=== PATIENT | female | born 1945 | race Hispanic/Latino ===

== ENCOUNTER → 2017-04-21 | Outpatient (CLI) | payer OTHER | END | disposition home or self-care (01) | LOC: OIH 10:29 | PROVIDERS: ATTEND Family Medicine | DX: M25.551 Pain in right hip (principal); M25.552 Pain in left hip | CPT/HCPCS: 73521 ==

== ENCOUNTER 2025-01-18 10:14 | Observation (INO) | payer OTHER ==
[~2025-01-18] VITALS: Ht 152.4 cm; Wt 54.6 kg
[2025-01-18] VITALS (7 sets, daily range): BP systolic 120–156; BP diastolic 50–75; PULSE 63–75; RESP 18–20; TEMP 98.7–98.9; O2SAT 98
--- NOTE | 2025-01-18 10:26 | EKG ---
[facility] Test Date: 2025-01-18 Test Time: 10:14:10 Pat Name: SHAY GARZON Department: [facility] Room: 228 Gender: F Rn Acls: 0723 : [id number] Requested By: EVE DAMON Order Number: [id number] Reading MD: Jessica Flaherty Measurements Intervals [place] Rate: 63 P: 0 CA: 75 QRS: 31 QRSD: 90 T: 53 QT: 439 QTc: 450 Interpretive Statements Sinus rhythm No previous ECG available for comparison Electronically Signed On 01-18-2025 21:13:58 MATE SHIP by Jessica Flaherty Please click the below link to view image of tracing.
--- NOTE | 2025-01-18 10:27 | ERN ---
ED Note History of Present Illness Stated Complaint: CP Chief Complaint: Chest Pain Time Seen by MD: 10:17 Dictation: PATIENT IS A 79-YEAR-OLD FEMALE COMING IN WITH HER DAUGHTER WITH COMPLAINTS OF SUBSTERNAL CHEST PAIN WITHOUT REFERRED PAIN ONSET 20 MINUTES PRIOR TO ARRIVAL. PATIENT WAS RIDING IN HER CAR GOING TO A DOCTOR'S OFFICE WHEN SHE STARTED HAVING THE CHEST PAIN. SHE DENIES SHORTNESS A BREATH NO JAW PAIN NO ARM PAIN NO BACK PAIN. NO NAUSEA VOMITING. SHE STATES SHE HAS A HISTORY OF DIABETES AND HYPERTENSION, CHOLESTEROL. NO MANAGER BUSINESS DEVELOPMENT HOSPICE'S NO HISTORY OF CAD STENTS OR HEART CATHETERIZATION. Allergies: Coded Allergies: No Known Drug Allergies (Unverified Allergy, Unknown, 01/18/25) Past Medical History Past Medical History: Diabetes-Type II, High Cholesterol, Hypertension Surgical History: None History: Not Applicable RN Note Reviewed/Agreed w/PFSH: Yes Review of System Dictation CONSTITUTIONAL: NEGATIVE EXCEPT FOR HPI HEAD/FACE: NEGATIVE EXCEPT FOR HPI EENT: NEGATIVE EXCEPT FOR HPI RESPIRATORY: NEGATIVE EXCEPT FOR HPI CHEST PAIN GASTROINTESTINAL/ABDOMINAL: NEGATIVE EXCEPT FOR HPI GENITOURINARY: NEGATIVE EXCEPT FOR HPI MUSCULOSKELETAL: NEGATIVE EXCEPT FOR HPI INTEGUMENTARY: NEGATIVE EXCEPT FOR HPI NEUROLOGICAL/PSYCH: NEGATIVE EXCEPT FOR HPI HEMATOLOGIC/LYMPHATIC: NEGATIVE EXCEPT FOR HPI ALL SYSTEMS NEGATIVE, EXCEPT NOTED ABOVE. 13 POINT REVIEW OF SYSTEMS ASSESSED AND ALL NEGATIVE EXCEPT FOR ABOVE. Initial Vital Sign VS Vital Signs Date Time Temp Pulse Resp B/P (MAP) Pulse Ox O2 Delivery O2 Flow Rate FiO2 01/18/25 10:17 98.1 63 18 163/58 98 Room Air 0 01/18/25 11:24 21 Physical Exam Dictation VITAL SIGNS REVIEWED GENERAL APPEARANCE: ALERT, ORIENTED X 3, MILD ACUTE DISTRESS, WELL DEVELOPED, NOURISHED. HEAD AND FACE: NON-TRAUMATIC. EYES: PERRL, PINK CONJUNCTIVAS, EYELID NO TRAUMA, ANTERIOR CHAMBER WITH ARCUS SENILIS. EARS: PINNAS INTACT AND NO SIGNS OF TRAUMA OR ERYTHEMA EAR CANALS CLEAR AND NO DISCHARGE TM NO ERYTHEMA NOSE: NO DISCHARGE, NO BLEEDING. OROPHARYNX: MOUTH NORMAL, TONGUE PINK, PHARYNX CLEAR,NO ERYTHEMA, TONSILS NO EXUDATES, NO ABSCESSES NOTED, MUCOUS MEMBRANE MOIST NECK: SUPPLE, NON-TENDER, NO THYROMEGALY, NO MASSES, NO JVD, NO BRUITS BREAST:DEFERRED CHEST:NO TENDERNESS, NO CREPITUS, NO PARADOXICAL MOVEMENT, NO RETRACTIONS LUNGS:CLEAR, WELL-VENTILATED, SYMMETRIC, NO RALES, NO WHEEZING, NO RHONCHI, NO STRIDOR, GOOD BREATH SOUNDS BILATERALLY HEART: REGULAR RATE, REGULAR RHYTHM, NO MURMUR, NO GALLOPS VASCULAR: NO PERIPHERAL EDEMA, ABDOMEN: SOFT, POSITIVE BOWEL SOUNDS, NONDISTENDED, NO GUARDING, NONTENDER, NO REBOUND, NO MASSES NO HEPATOMEGALY, NO SPLENOMEGALY, NO CLAUDIO'S SIGN, NO HERNIAS. RECTAL: DEFERRED GENITAL: DEFERRED NEUROLOGICAL: NORMAL SPEECH, MOTOR FUNCTION INTACT, SENSORY FUNCTION INTACT MUSCULOSKELETAL: NECK NONTENDER, FULL RANGE OF MOTION, BACK NONTENDER, FULL RANGE OF MOTION, EXTREMITIES: NONTENDER, FULL RANGE OF MOTION SKIN: COLOR PINK, DRY, NO TURGOR, NO RASH, NO LACERATIONS, NO ABRASIONS, NO CONTUSIONS. LYMPHATIC: DEFERRED Results (Laboratory/Radiology) Laboratory/Radiology Laboratory Tests Test 01/18/25 10:32 White Blood Count 3.6 K/uL (4.8-10.8) L Red Blood Count 3.04 MIL/uL (4.00-5.50) L Hemoglobin 9.1 g/dL (12.0-16.0) L Hematocrit 28.0 % (36-48) L Mean Corpuscular Volume 92.1 fL (79-99) Mean Corpuscular Hemoglobin 29.9 pg (27.0-33.0) Mean Corpuscular Hemoglobin Concent 32.5 g/dL (32.0-36.0) Red Cell Distribution Width 12.0 % (11.0-15.5) Platelet Count 163 K/uL (130-400) Mean Platelet Volume 8.9 fL (7.5-10.5) Immature Granulocyte % (Auto) 0.3 % (0-1) Neutrophils (%) (Auto) 54.1 % (40.0-77.0) Lymphocytes (%) (Auto) 29.2 % (21.0-51.0) Monocytes (%) (Auto) 13.9 % (3.0-13.0) H Eosinophils (%) (Auto) 2.2 % (0.0-8.0) Basophils (%) (Auto) 0.3 % (0.0-5.0) Neutrophils # (Auto) 1.9 K/uL (1.8-7.7) Lymphocytes # (Auto) 1.1 K/uL (1.0-4.8) Monocytes # (Auto) 0.5 K/uL (0.1-1.0) Eosinophils # (Auto) 0.08 K/uL (0.00-0.70) Basophils # (Auto) 0.01 K/uL (0.00-0.20) Absolute Immature Granulocyte (auto 0.01 K/uL (0-1) Nucleated Red Blood Cells 0.0 % (0.0-0.19) Sodium Level 139 mmol/L (136-145) Potassium Level 3.8 mmol/L (3.5-5.1) Chloride Level 103 mmol/L (101-111) Carbon Dioxide Level 27 mmol/L (21-32) Blood Urea Nitrogen 17 mg/dL (7-18) Creatinine 1.2 mg/dL (0.5-1.0) H Glomerular Filtration Rate Calc 45 mL/min (>90) Random Glucose 113 mg/dL (70-105) H Total Calcium 8.5 mg/dL (8.5-10.1) Magnesium Level 1.60 mg/dL (1.80-2.40) L Troponin I High Sensitivity 10 ng/L (4-50) 1125/CHEST X-RAY NEGATIVE Labs Reviewed?: Yes EKG Comment: 1014/EKG NORMAL SINUS RHYTHM/HEART RATE 63/AXIS NORMAL/NO ECTOPY ED Course ED Course Orders Procedure Category Date Status Time Cbc With Differential LAB 01/18/25 Complete 10:24 Chest 1vw RAD 01/18/25 Taken 10:24 12 Lead Ekg Tracing- EKG 01/18/25 Complete Technical 10:24 Nitroglycerin 0.4mg PHA 01/18/25 In Process Sl Tab (Nitrostat) 10:30 Magnesium LAB 01/18/25 Complete 10:24 Troponin I High LAB 01/18/25 Complete Sensitivity 10:24 Aspirin 325mg Tab PHA 01/18/25 Complete (Aspirin 325mg Tab) 10:30 Basic Metabolic Panel LAB 01/18/25 Complete 10:24 Magnesium 2gm Premix PHA 01/18/25 In Process 50ml (Magnesium 2gm 11:00 Edm Admit Bridge Order ADM 01/18/25 Verified 11:42 Current Medications Medications (Trade) Dose Ordered Sig/[place] Route PRN Reason Start Time Stop Time Status Last Admin Dose Admin Aspirin (Aspirin 325mg Tab) 325 mg ONCE ONCE PO 01/18/25 10:30 01/18/25 10:31 DC Magnesium Sulfate 50 ml @ 0 mls/hr PROTOCOL IV 01/18/25 11:00 02/17/25 10:59 Nitroglycerin (Nitrostat) 0.4 mg Q5M PRN SL CHEST PAIN 01/18/25 10:30 Vital Signs Date Time Temp Pulse Resp B/P (MAP) Pulse Ox O2 Delivery O2 Flow Rate FiO2 01/18/25 11:24 98.4 66 18 167/56 100 Room Air* 0 21 01/18/25 10:17 98.1 63 18 163/58 98 Room Air 0 1125/SPOKE WITH PATIENT REGARDING HER HIGH-RISK CHEST PAIN DUE TO HER METABOLIC SYNDROME TO INCLUDE DIABETES HYPERTENSION AND CHOLESTEROL ANEMIA. SHE STATES THE PAIN IS MARKEDLY IMPROVED, SHE WAS TOLD YEARS AGO SHE HAD AN OH. SHE DOES NOT HAVE A MANAGER BUSINESS DEVELOPMENT HOSPICE'S AT THE PRESENT TIME. 1145/SPOKE WITH [facility] AND REVIEWED EKG LABS CHEST X-RAY AND INTERVENTIONS FOR HYPOMAGNESEMIA. HE AGREED TO ADMIT PATIENT. HEART Score Response (Comments) Value History: Moderate suspicion (+1) 1 Age: > 65yrs (+2) 2 Risk Factors: 1-2 risk factors (+1) 1 Initial Troponin: Normal limit (0) 0 Total 4 Medical Decision Making MDM MDM: DIFFERENTIAL DIAGNOSIS: ACS/AMI/ELECTROLYTE IMBALANCE/DEHYDRATION/PNEUMONIA/BRONCHITIS RATIONALE: TESTS CONSIDERED AND ORDERED SECONDARY TO SHARED DECISION MAKING INCLUDE: LABS, ECG AND RADIOLOGY PREVIOUS OUTSIDE RECORDS REVIEWED: OLD ER VISITS. RISK OF COMPLICATION AND/OR MORBIDITY OR MORTALITY OF PATIENT MANAGEMENT: [id number] MEDICATIONS-PER MEDICATION RECONCILIATION NEED FOR HOSPITALIZATION: PATIENT DOES MEET CRITERIA FOR HOSPITALIZATION. PATIENT HIGH-RISK CHEST PAIN DUE TO HER METABOLIC SYNDROME. SHE WILL BE ADMITTED FOR SERIAL ENZYMES EKG AND CARDIOLOGY CONSULTATION. NEED FOR EMERGENCY MAJOR/MINOR SURGERY: NO THERE ARE NO SOCIAL CONCERNS WITH THIS PATIENT. PRESCRIPTION DRUG MANAGEMENT PRESCRIPTIONS WILL INCLUDE SYMPTOMATIC CARE PATIENT'S PRIOR EXTERNAL MEDICAL RECORDS FROM OTHER ER VISITS WERE REVIEWED BY ME INDICATED. PRIOR TESTING AND RESULTS FROM PREVIOUS VISITS WERE REVIEWED. PRIOR TESTS WERE TAKEN INTO ACCOUNT WITH MEDICAL DECISION MAKING AND RESOURCE UTILIZATION, INDEPENDENT HISTORIAN/HISTORIANS WERE USED TO OBTAIN COMPLETE MEDICAL HISTORY. I INDEPENDENTLY INTERPRETED THE TEST THAT WERE PERFORMED, RESULTS WERE REVIEWED BY ME AND CONSIDERED FINDINGS ON RADIOLOGY IF ORDERED. MEDICAL MANAGEMENT AND EXAMINATION INTERPRETATION DISCUSSIONS WERE HAD BY ME WITH OTHER QUALIFIED HEALTHCARE PROFESSIONALS INDICATED FOR THE PATIENT'S CARE. DX & DISP Disposition: Inpatient Decision to Admit Time: 11:25 Departure Impression: Primary Impression: Chest pain with high risk of acute coronary syndrome Additional Impressions: Hypomagnesemia, Stage 3 chronic kidney disease, Anemia of chronic renal failure, stage 3b, Diabetes mellitus with hyperglycemia Condition: Stable Referrals: QUINTIN HARRIS MD (PCP) Time of Disposition: 11:25 I have reviewed the case, and I agree with, Diagnosis and Plan EVE DAMON FLUOROSCOPE OPERATOR Jan 18, 2025 10:27
[2025-01-18] MEDS ORDERED: NITROGLYCERIN 0.4 MG SL TAB SL PRN ×2 (10:30→13:30)
[2025-01-18 10:37] LABS: IMMATURE GRANULOCYTE ABSOLUTE 0.01 K/uL (0-1); NUCLEATED RED BLOOD CELLS 0.0 % (0.0-0.19); PLATELET COUNT (AUTO) 163 K/uL (130-400); RED BLOOD CELL COUNT(AUTO) 3.04 MIL/uL (4.00-5.50); RED CELL DISTRIBUTION WIDTH 12.0 % (11.0-15.5); WHITE BLOOD COUNT (AUTO) 3.6 K/uL (4.8-10.8)
[2025-01-18 10:44] LABS: CREATININE 1.2 mg/dL (0.5-1.0); GLOMERULAR FILTR. RATE CALC 45.0 mL/min (>90); GLUCOSE,RANDOM 113.0 mg/dL (70-105); SODIUM SERUM 139.0 mmol/L (136-145); UREA NITROGEN, BLOOD 17.0 mg/dL (7-18)
--- NOTE | 2025-01-18 11:57 | HMCIMG ---
EXAM: CR Chest, 1 View. CLINICAL HISTORY: CHEST PAIN COMPARISON: None provided. FINDINGS: LUNGS: There is no mass, infiltrate, or acute pulmonary abnormality. PLEURAL SPACES: No evidence of pleural effusion or pneumothorax. MEDIASTINUM: Cardiac size and mediastinal contours within normal limits. BONES: No aggressive appearing osseous lesion seen. IMPRESSION: No acute cardiopulmonary pathology is evident. /[employer]
[2025-01-18] MEDS: ASPIRIN 325MG TAB PO ONE (12:01)
[2025-01-18] MEDS: MAGNESIUM 2GM PREMIX 50ML 50 ML IV SCH (12:02)
--- NOTE | 2025-01-18 13:18 | HP ---
[facility] HISTORY & PHYSICAL Date Patient Seen: Jan 18, 2025 Time of Visit: 13:18 Supervising Physician: Dr. COOK Primary Care Physician: Dr. Jennifer Ceballos Outpatient Specialists: [ ] Inpatient Consults: [ ] PROBLEM LIST: Angina Diabetes mellitus type 2 Hypercholesteremia Hypertension HPI: Patient is an 79-year-old female with a past medical history significant for diabetes mellitus type 2, hypertension who states that she experienced an episode of chest pain while on the way to her PCP's office. PCP advised the patient to report to the emergency department for cardiac workup. Upon evaluation in the ED patient's EKG was negative for any acute findings, normal s inus rhythm. Troponins are negative on this admission, her blood pressure is elevated at 163/58, patient is not in any respiratory distress and currently satting at 96 % on room air. At the time of evaluation patient states that her symptoms are residing, worsened with cough, patient also endorses a sore throat specifically whenever she swallows. She denies any history of fevers, night sweats, nausea or vomiting, diarrhea. Patient's white count today is 3.6 with a hemoglobin of 9.1. Creatinine slightly elevated at 1.2 with no previous visits to the hospital to compare, EGFR is 45. Chest x-ray is negative for any acute cardiopulmonary processes. We will order serologies to rule out strep throat, as well as influenza and COVID. Patient is in placed on telemetry. She is being admitted and transferred to PCCU for close monitoring. Plan Admit to PCCU Patient on telemetry Pending serologies Stat EKG and troponin for any acute chest pain Pending physical therapy PAST MEDICAL HX: see above PAST SURGICAL HX: noncontributory SOCIAL HISTORY: No tobacco, ETOH, or illicit drug use Coded Allergies: No Known Drug Allergies (Unverified Allergy, Unknown, 01/18/25) REVIEW OF SYSTEMS: 12 point ROS reviewed with patient. Pertinent positives mentioned above. Otherwise negative. PHYSICAL EXAM: GENERAL: alert, weak, awake oriented x 3 HEENT: EOMI, Sclera non icteric, moist mucosa NECK: Supple, no JVD, trachea midline LUNGS: Clear breath sounds bilaterally. No wheezes HEART: Regular rate and rhythm. Normal S1 and S2, without murmurs ABD: Abdomen soft, nontender. Bowel sounds present EXT: No clubbing cyanosis or edema NEURO: Alert and oriented to person, follows commands Vital Signs (last 8hr) Date Time Temp Pulse Resp B/P (MAP) Pulse Ox O2 Delivery O2 Flow Rate FiO2 01/18/25 11:24 98.4 66 18 167/56 100 Room Air* 0 21 01/18/25 10:17 98.1 63 18 163/58 98 Room Air 0 LABS: Hematology Labs: Test 01/18/25 10:32 Range/Units White Blood Count 3.6 L 4.8-10.8 K/uL Red Blood Count 3.04 L 4.00-5.50 MIL/uL Hemoglobin 9.1 L 12.0-16.0 g/dL Hematocrit 28.0 L 36-48 % Mean Corpuscular Volume 92.1 79-99 fL Mean Corpuscular Hemoglobin 29.9 27.0-33.0 pg Mean Corpuscular Hemoglobin Concent 32.5 32.0-36.0 g/dL Red Cell Distribution Width 12.0 11.0-15.5 % Platelet Count 163 130-400 K/uL Mean Platelet Volume 8.9 7.5-10.5 fL Immature Granulocyte % (Auto) 0.3 0-1 % Neutrophils (%) (Auto) 54.1 40.0-77.0 % Lymphocytes (%) (Auto) 29.2 21.0-51.0 % Monocytes (%) (Auto) 13.9 H 3.0-13.0 % Eosinophils (%) (Auto) 2.2 0.0-8.0 % Basophils (%) (Auto) 0.3 0.0-5.0 % Neutrophils # (Auto) 1.9 1.8-7.7 K/uL Lymphocytes # (Auto) 1.1 1.0-4.8 K/uL Monocytes # (Auto) 0.5 0.1-1.0 K/uL Eosinophils # (Auto) 0.08 0.00-0.70 K/uL Basophils # (Auto) 0.01 0.00-0.20 K/uL Absolute Immature Granulocyte (auto 0.01 0-1 K/uL Nucleated Red Blood Cells 0.0 0.0-0.19 % Chemistry Labs: Test 01/18/25 10:32 Range/Units Sodium Level 139 136-145 mmol/L Potassium Level 3.8 3.5-5.1 mmol/L Chloride Level 103 101-111 mmol/L Carbon Dioxide Level 27 21-32 mmol/L Blood Urea Nitrogen 17 7-18 mg/dL Creatinine 1.2 H 0.5-1.0 mg/dL Glomerular Filtration Rate Calc 45 >90 mL/min Random Glucose 113 H 70-105 mg/dL Total Calcium 8.5 8.5-10.1 mg/dL Magnesium Level 1.60 L 1.80-2.40 mg/dL Troponin I High Sensitivity 10 4-50 ng/L DIAGNOSTICS / RADIOLOGY RESULTS: [ ] PLAN NEURO: Minimize central acting medications as possible. Maintain fall precautions, adequate lighting during the day PULMONARY: Supplemental 02 as needed. Maintain aspiration precautions at all times CARDIOVASCULAR: Follow hemodynamics. Vital signs per facility protocol GI & NUTRITION: Continue with nutritional support. Continue stool softeners and laxatives as needed. KIDNEYS & ELECTROLYTES: Strict monitoring of intake, output and overall fluid balance. Avoid nephrotoxic medications to the extent possible. Medications to be dosed according to renal function. Monitor electrolytes and replace as needed ENDOCRINE: Maintain blood glucose between 100-180 at all times. Hypoglycemia protocol in place INFECTIOUS DISEASE: Trend temperature, WBC and procalcitonin level Follow cultures, deescalate antibiotics as soon as possible. Panculture if new onset fever ONCOLOGY/HEMATOLOGY/COAGULATION: Monitor for s/s of bleeding Monitor hemoglobin, coagulation studies as needed SKIN: Pressure ulcer prevention per facility protocol Specialty mattress ORTHO/REHAB: Continue PT/OT Prophylaxis: Continue GI and DVT prophylaxis Code Status: Full Resuscitation Disposition: TBD Other: Total patient care time exceeds 35 minutes excluding all procedures. VY PATE PAC Jan 18, 2025 13:18
[2025-01-18] MEDS ORDERED: MAG/ALUM/SIMETH 30 ML UDCUP PO PRN (13:30)
[2025-01-18] MEDS ORDERED: BENZOCAINE/MENTH/CETYLPYRD CL 1 EACH LOZENGE MM PRN (13:30)
[2025-01-18] MEDS ORDERED: LOPERAMIDE HCL 2 MG CAP PO PRN (13:30)
[2025-01-18] MEDS ORDERED: ARTIFICAL TEARS SOL 15 ML OP PRN (13:30)
[2025-01-18] MEDS ORDERED: HYDROcodone/APAP 5/325 1 TAB TABLET PO PRN (13:30)
[2025-01-18] MEDS ORDERED: LACTULOSE 20 GM/30 ML UDCUP PO PRN (13:30)
[2025-01-18] MEDS ORDERED: LIDOCAINE HCL 2% VISCOUS 30 ML, MAG/ALUM/SIMETH 30ML 30 ML, DICYCLOMINE HCL 20 MG PO PRN (13:30)
--- NOTE | 2025-01-18 14:29 | NUR ---
PATIENT COMPLAING OF LOWER ABDOMINAL PAIN AROUND THE BLADDER AREA, I BLADDER SCANNED PATIENT AND SHE IS RETAINING 1172 CC OF URINE, I LET CHARLEY LANGE KNOW AND NOTIFIED PRIMARY NURSE RENEE LANGE OF SITUATION PATIENT RESTING IN BED, CALL LIGHT IN REACH Addendum: 01/18/25 at 1435 by RAJIV SPOKE TO VY ELLIS OVER TELEPHONE AND RECEIVED ORDERS FOR HAMMONDS INSERTION ON THIS PATIENT
[2025-01-18 14:59] LABS: RAPID GROUP A STREP positive (NEGATIVE)
[2025-01-18 15:00] LABS: COVID19 (SARS ANTIGEN RAPID) PRESUMPTIVE NEGATIVE (NEGATIVE); INFLUENZA TYPE A Negative For Type A (NEGATIVE); INFLUENZA TYPE B Negative For Type B (NEGATIVE)
--- NOTE | 2025-01-18 15:05 | NUR ---
REPORT GIVEN TO NURSE OATES AT THIS TIME
--- NOTE | 2025-01-18 15:56 | NUR ---
dcp; HOME Sw met with pt and her daughter Hetal Akbar [phone]. Pt lives at home with her Altaf Akbar [phone]. Pt requires assist wih all ADLS, cooking, cleaning and laundry. Daughter transports as needed PCP is Blake Ceballos and uses [facility] for rx needs. Pt denies dc needs and will reurn home at dc
[2025-01-18] MEDS: AMOXICILLIN 500 MG CAPSULE PO SCH (17:38)
[2025-01-18] MEDS: guaiFENesin-DM 200/20MG 10ML PO PRN (17:40)
[2025-01-18] MEDS ORDERED: FAMOTIDINE 20MG VIAL IV SCH (21:00)
[2025-01-18] MEDS: FAMOTIDINE 20MG TAB PO SCH (21:49)
--- NOTE | 2025-01-18 22:32 | NUR ---
Home medications are pending verification. Patient's family member sent a picture of some medication bottles but the medication bottles and the pills inside her daily medication dispenser do no match. Asked daughter at bedside if an updated medication list can be obtained tomorrow morning. Patient uses [facility] and they open at 0900. Primary Care Dr is Jennifer Ceballos. Daughter at bedside did give patient her medication that is in her pm dispenser.
[2025-01-19 03:50] VITALS: BP 131/57; PULSE 59; RESP 18; TEMP 98.6
[2025-01-19 03:50] LABS: NUCLEATED RED BLOOD CELLS 0.0 % (0.0-0.19); PLATELET COUNT (AUTO) 175.0 K/uL (130-400); RED BLOOD CELL COUNT(AUTO) 2.96 MIL/uL (4.00-5.50); RED CELL DISTRIBUTION WIDTH 11.9 % (11.0-15.5); WHITE BLOOD COUNT (AUTO) 4.3 K/uL (4.8-10.8)
[2025-01-19 04:07] LABS: CREATININE 0.8 mg/dL (0.5-1.0); GLOMERULAR FILTR. RATE CALC 74.0 mL/min (>90); GLUCOSE,RANDOM 82.0 mg/dL (70-105); SODIUM SERUM 139.0 mmol/L (136-145); UREA NITROGEN, BLOOD 14.0 mg/dL (7-18)
[2025-01-19] MEDS ORDERED: PoTASSium chloRIDE 20MEQ ER 20 MEQ ERTAB PO PRN (05:30)
[2025-01-19] MEDS: PoTASSium chl 10% ELIXIR 20MEQ 20 MEQ/15 ML UDCUP PO PRN (06:42)
[2025-01-19 07:10] VITALS: O2SAT 98
[2025-01-19 07:50] VITALS: BP 127/56; PULSE 55; RESP 16; TEMP 98.2
--- NOTE | 2025-01-19 11:05 | PN ---
[facility] PROGRESS NOTE Date Patient Seen: Jan 19, 2025 Time of Visit: 11:04 Supervising Physician: Dr Sushil Watt Primary Care Physician: Dr. Jennifer Ceballos Outpatient Specialists: [ ] Inpatient Consults: [ ] PROBLEM LIST: Angina Diabetes mellitus type 2 Hypercholesteremia Hypertension INTERVAL HISTORY: [ ] REVIEW OF SYSTEMS: 12 point ROS reviewed with patient. Pertinent positives mentioned above. Otherwise negative. PHYSICAL EXAM: GENERAL: alert, weak, awake oriented x 3 HEENT: EOMI, Sclera non icteric, moist mucosa NECK: Supple, no JVD, trachea midline LUNGS: Clear breath sounds bilaterally. No wheezes HEART: Regular rate and rhythm. Normal S1 and S2, without murmurs ABD: Abdomen soft, nontender. Bowel sounds present EXT: No clubbing cyanosis or edema NEURO: Alert and oriented to person, follows commands Vital Signs (last 8hr) Date Time Temp Pulse Resp B/P (MAP) Pulse Ox O2 Delivery O2 Flow Rate FiO2 01/19/25 07:50 98.2 55 16 127/56 98 Room Air 01/19/25 03:50 98.6 59 18 131/57 98 Room Air LABS: Hematology Labs: Test 01/19/25 03:20 01/18/25 10:32 Range/Units White Blood Count 4.3 L 4.8-10.8 K/uL Red Blood Count 2.96 L 4.00-5.50 MIL/uL Hemoglobin 8.8 L 12.0-16.0 g/dL Hematocrit 26.2 L 36-48 % Mean Corpuscular Volume 88.5 79-99 fL Mean Corpuscular Hemoglobin 29.7 27.0-33.0 pg Mean Corpuscular Hemoglobin Concent 33.6 32.0-36.0 g/dL Red Cell Distribution Width 11.9 11.0-15.5 % Platelet Count 175 130-400 K/uL Mean Platelet Volume 9.4 7.5-10.5 fL Nucleated Red Blood Cells 0.0 0.0-0.19 % Immature Granulocyte % (Auto) 0.3 0-1 % Neutrophils (%) (Auto) 54.1 40.0-77.0 % Lymphocytes (%) (Auto) 29.2 21.0-51.0 % Monocytes (%) (Auto) 13.9 H 3.0-13.0 % Eosinophils (%) (Auto) 2.2 0.0-8.0 % Basophils (%) (Auto) 0.3 0.0-5.0 % Neutrophils # (Auto) 1.9 1.8-7.7 K/uL Lymphocytes # (Auto) 1.1 1.0-4.8 K/uL Monocytes # (Auto) 0.5 0.1-1.0 K/uL Eosinophils # (Auto) 0.08 0.00-0.70 K/uL Basophils # (Auto) 0.01 0.00-0.20 K/uL Absolute Immature Granulocyte (auto 0.01 0-1 K/uL Chemistry Labs: Test 01/19/25 06:07 01/19/25 03:20 01/18/25 10:32 Range/Units Whole Blood Glucose 110 70-110 MG/DL Sodium Level 139 136-145 mmol/L Potassium Level 3.4 L 3.5-5.1 mmol/L Chloride Level 103 101-111 mmol/L Carbon Dioxide Level 27 21-32 mmol/L Blood Urea Nitrogen 14 7-18 mg/dL Creatinine 0.8 0.5-1.0 mg/dL Glomerular Filtration Rate Calc 74 >90 mL/min Random Glucose 82 70-105 mg/dL Total Calcium 8.2 L 8.5-10.1 mg/dL Magnesium Level 1.60 L 1.80-2.40 mg/dL Troponin I High Sensitivity 10 4-50 ng/L DIAGNOSTICS / RADIOLOGY RESULTS: [ ] PLAN NEURO: Minimize central acting medications as possible. Maintain fall precautions, adequate lighting during the day PULMONARY: Supplemental 02 as needed. Maintain aspiration precautions at all times CARDIOVASCULAR: Follow hemodynamics. Vital signs per facility protocol GI & NUTRITION: Continue with nutritional support. Continue stool softeners and laxatives as needed. KIDNEYS & ELECTROLYTES: Strict monitoring of intake, output and overall fluid balance. Avoid nephrotoxic medications to the extent possible. Medications to be dosed according to renal function. Monitor electrolytes and replace as needed ENDOCRINE: Maintain blood glucose between 100-180 at all times. Hypoglycemia protocol in place INFECTIOUS DISEASE: Trend temperature, WBC and procalcitonin level Follow cultures, deescalate antibiotics as soon as possible. Panculture if new onset fever ONCOLOGY/HEMATOLOGY/COAGULATION: Monitor for s/s of bleeding Monitor hemoglobin, coagulation studies as needed SKIN: Pressure ulcer prevention per facility protocol Specialty mattress ORTHO/REHAB: Continue PT/OT Prophylaxis: Continue GI and DVT prophylaxis Code Status: Full Resuscitation Disposition: TBD Other: Total patient care time exceeds 35 minutes excluding all procedures. VINOD PEACE PAC Jan 19, 2025 11:05
--- NOTE | 2025-01-19 11:06 | DS ---
[facility] DISCHARGE SUMMARY Date Patient Seen: Jan 19, 2025 Time of Visit: 11:05 Supervising Physician: Dr Sushil Watt Primary Care Physician: Dr. Jennifer Ceballos Outpatient Specialists: [ ] Inpatient Consults: [ ] PROBLEM LIST: Angina Diabetes mellitus type 2 Hypercholesteremia Hypertension Strep group a HOSPITAL COURSE: HPI 79-year-old female with a past medical history significant for diabetes mellitus type 2, hypertension who states that she experienced an episode of chest pain while on the way to her PCP's office. PCP advised the patient to report to the emergency department for cardiac workup. Upon evaluation in the ED patient's EKG was negative for any acute findings, normal sinus rhythm. Troponins are negative on this admission, her blood pressure is elevated at 163/58, patient is not in any respiratory distress and currently satting at 96 % on room air. At the time of evaluation patient states that her symptoms are residing, worsened with cough, patient also endorses a sore throat specifically whenever she swallows. She denies any history of fevers, night sweats, nausea or vomiting, diarrhea. Patient's white count today is 3.6 with a hemoglobin of 9.1. Creatinine slightly elevated at 1.2 with no previous visits to the hospital to compare, EGFR is 45. Chest x-ray is negative for any acute cardiopulmonary processes. We will order serologies to rule out strep throat, as well as influenza and COVID. Patient is in placed on telemetry. She is being admitted and transferred to PCCU for close monitoring. The patient was treated for the following problems: ACTIVE PROBLEM LIST FOR THE HOSPITALIZATION: Chest pain Strep a CHRONIC PROBLEMS: Diabetes Hypertension FUR TANNER FINDINGS/RECOMMENDATIONS: [ ] PROCEDURES: as mentioned above DISCHARGE MEDICATIONS: Resume home medications with the addition of amoxicillin for the strep Pt hemodynamically stable and afebrile at time of discharge. PCP notified of patients admission, hospital course and discharge. PHYSICAL EXAM: GENERAL: alert, weak, awake oriented x 3 HEENT: EOMI, Sclera non icteric, moist mucosa NECK: Supple, no JVD, trachea midline LUNGS: Clear breath sounds bilaterally. No wheezes HEART: Regular rate and rhythm. Normal S1 and S2, without murmurs ABD: Abdomen soft, nontender. Bowel sounds present EXT: No clubbing cyanosis or edema NEURO: Alert and oriented to person, follows commands FOLLOW-UP: Follow-up with PCP in 2-3 days RECOMMENDATIONS: See Discharge Instructions Return precautions This case was seen and discussed with my supervising physician. More than 30 minutes spent on discharge process, including evaluation of the patient, discussion with nursing staff, medication reconciliation and follow-up appointments VINOD PEACE PAC Jan 19, 2025 11:06
--- NOTE | 2025-01-19 11:07 | DS ---
[facility] DISCHARGE SUMMARY Date Patient Seen: Jan 19, 2025 Time of Visit: 11:07 Supervising Physician: Dr Sushil Watt Primary Care Physician: Dr. Jennifer Ceballos Outpatient Specialists: [ ] Inpatient Consults: [ ] PROBLEM LIST: Angina Diabetes mellitus type 2 Hypercholesteremia Hypertension Strep group a HOSPITAL COURSE: HPI The patient was treated for the following problems: ACTIVE PROBLEM LIST FOR THE HOSPITALIZATION: CHRONIC PROBLEMS: continue previous management per PCP unless otherwise indicated FOOD SAFETY DIRECTOR FINDINGS/RECOMMENDATIONS: [ ] PROCEDURES: as mentioned above DISCHARGE MEDICATIONS: Pt hemodynamically stable and afebrile at time of discharge. PCP notified of patients admission, hospital course and discharge. PHYSICAL EXAM: GENERAL: alert, weak, awake oriented x 3 HEENT: EOMI, Sclera non icteric, moist mucosa NECK: Supple, no JVD, trachea midline LUNGS: Clear breath sounds bilaterally. No wheezes HEART: Regular rate and rhythm. Normal S1 and S2, without murmurs ABD: Abdomen soft, nontender. Bowel sounds present EXT: No clubbing cyanosis or edema NEURO: Alert and oriented to person, follows commands FOLLOW-UP: Follow-up with PCP in 2-3 days RECOMMENDATIONS: See Discharge Instructions This case was seen and discussed with my supervising physician. More than 30 minutes spent on discharge process, including evaluation of the patient, discussion with nursing staff, medication reconciliation and follow-up appointments VINOD PEACE Jan 19, 2025 11:07
[2025-01-19 11:46] VITALS: BP 134/54; PULSE 60; RESP 16; TEMP 97.9
--- NOTE | 2025-01-19 16:00 | NUR ---
pt was discharged after daughter was advised of pt to continue with home meds and a written prescription was written for po antibiotics.
== END 2025-01-19 15:55 | disposition home or self-care (01) ==
LOC: EDH 10:14 → EDHIP 13:12 → 3AH 14:30 → 2DH 15:12
PROVIDERS: ADMIT Internal Medicine Critical Care Medicine; ATTEND Internal Medicine Critical Care Medicine
DX: I20.9 Angina pectoris, unspecified (principal); I12.9 Hypertensive chronic kidney disease with stage 1 through stage 4 chronic kidney disease, or unspecified chronic kidney disease; E11.22 Type 2 diabetes mellitus with diabetic chronic kidney disease; E11.65 Type 2 diabetes mellitus with hyperglycemia; D63.1 Anemia in chronic kidney disease; E78.00 Pure hypercholesterolemia, unspecified; N18.32 Chronic kidney disease, stage 3b; E83.42 Hypomagnesemia; Z20.822 Contact with and (suspected) exposure to COVID-19; Z79.899 Other long term (current) drug therapy; Z98.890 Other specified postprocedural states
CPT/HCPCS: 96365; 99285; 83735; 84484 ×2; 80048 ×2; 85025; 87880; 87804 ×2; 82948 ×4; 87426; 36415 ×2; 71045; 93005; 94640; 85027; G0378 ×27; J3475; 94664